=== PATIENT | male | born 1930 | race Caucasian/White ===

== ENCOUNTER 2017-10-08 16:32 | Inpatient (IN) | payer OTHER, MEDICARE ==
[~2017-10-08] VITALS: Ht 177.8 cm; Wt 72.5 kg
[2017-10-08 16:34] VITALS: BP 197/117; PULSE 113; RESP 16; TEMP 98; O2SAT 97
[2017-10-08] MEDS ORDERED: TETANUS/DIPHTHERIA TOXOID ADULT 0.5 ML VIAL IM ONE (17:15)
[2017-10-08] MEDS ORDERED: SODIUM CHLORIDE 0.9% FLUSH 10 ML FLUSH IV FLUSH PRN ×2 (17:15→19:00)
[2017-10-08] MEDS ORDERED: ceFAZolin 2 GM PREMIX 50 ML IV ONE (17:15)
--- NOTE | 2017-10-08 17:38 | PD ---
HPI Chief Complaint: Laceration/Skin Injury Time Seen by Provider: 17:04 Travel History International Travel<30 days: No Contact w/Intl Traveler<30days: No Traveled to known affect area: No History of Present Illness HPI 87-year-old male with history of hypertension, BPH, on Eliquis, he read private vehicle for evaluation of left second finger and left fourth finger lacerations. The patient was doing woodwork with a table saw when this injury occurred. Injury occurred just prior to arrival to the emergency department. Pain is mild. He denies any other injuries. He is right-hand dominant. PFSH Past Medical History Cardiovascular Problems: Yes Social History Tobacco Use: No Allergies-Medications (Allergen,Severity, Reaction): Uncoded Allergies: HTN MED (Adverse Reaction, Severe, Swelling, 10/08/17) LEGS Reported Meds & Prescriptions Reported Meds & Active Scripts Active Reported Eliquis (Apixaban) 5 Mg Tab 5 Mg PO BID Donepezil 10 Mg Tab 10 Mg PO HS Clonidine (Clonidine HCl) 0.1 Mg Tab 0.1 Mg PO HS Metoprolol Tartrate 100 Mg Tab 100 Mg PO HS Finasteride 5 Mg Tab 5 Mg PO DAILY Do not crush. Triamterene-Hydrochlorothiazide 37.5-25 Mg Cap 1 Cap PO DAILY Lisinopril 20 Mg Tab 20 Mg PO BID Review of Systems Except as stated in HPI: all other systems reviewed are Neg Physical Exam Narrative GENERAL: Well-developed, well-nourished, awake, alert, pleasant, no apparent distress. SKIN: Left fourth finger fingertip avulsion to approximately one third of the distal nail. Left second finger with partial amputation around the DIP joint. There is a moderate amount of venous bleeding. There is normal capillary refill in the distal tip of the left second finger. The patient is unable to extend the fingertip. He also has no sensation in the left second fingertip. HEAD: Atraumatic. Normocephalic. EYES: Pupils equal and round. No scleral icterus. No injection or drainage. ENT: No nasal bleeding or discharge. Mucous membranes pink and moist. NECK: Trachea midline. No JVD. CARDIOVASCULAR: Regular rate and rhythm. RESPIRATORY: No accessory muscle use. Clear to auscultation. Breath sounds equal bilaterally. MUSCULOSKELETAL: Skin exam as above. NEUROLOGICAL: Awake and alert. No obvious cranial nerve deficits. Motor grossly within normal limits. Normal speech. PSYCHIATRIC: Appropriate mood and affect; insight and judgment normal. Data Data Last Documented VS Vital Signs Date Time Temp Pulse Resp B/P (MAP) Pulse Ox O2 Delivery O2 Flow Rate FiO2 10/08/17 16:34 98.0 113 16 197/117 (143) 97 Orders Orders Complete Blood Count With Diff (10/08/17 17:11) Comprehensive Metabolic Panel (10/08/17 17:11) Prothrombin Time / Inr (Pt) (10/08/17 17:11) Act Partial Throm Time (Ptt) (10/08/17 17:11) Iv Access Insert/Monitor (10/08/17 17:11) Ecg Monitoring (10/08/17 17:11) Oximetry (10/08/17 17:11) Sodium Chloride 0.9% Flush (Ns Flush) (10/08/17 17:15) Hand, Complete ([id number]) (10/08/17 ) Chest, Single Ap (10/08/17 ) Cefazolin 2 Gm Premix (Ancef 2 Gm Premix (10/08/17 17:15) Tetanus/Diphtheria Tox Adult (Tetanus/Di (10/08/17 17:15) Electrocardiogram (10/08/17 ) Consult Hand Surgery (10/08/17 ) Diet Npo (10/08/17 Dinner) Consent (10/08/17 18:44) Comprehensive Metabolic Panel (10/09/17 06:00) Free Thyroxine (T4) (10/09/17 06:00) Hemoglobin (Hgb) A1c (10/09/17 06:00) Magnesium (Mg) (10/09/17 06:00) Phosphorus (Po4) (10/09/17 06:00) Thyroid Stimulating Hormone (10/09/17 06:00) Complete Blood Count With Diff (10/09/17 06:00) Admit Order (Ed Use Only) (10/08/17 18:48) Admit To Inpatient (10/08/17 ) Code Status (10/08/17 18:46) Vital Signs (Adult) Q4H (10/08/17 18:46) Activity Oob Ad Fallon (10/08/17 18:46) Oleo Hasher And Renderer / Telemetry .CONTINUOUS (10/08/17 18:46) Intake + Output LILLY.QSHIFT (10/08/17 18:46) Sodium Chlor 0.9% 1000 Ml Inj (Ns 1000 M (10/08/17 18:46) Sodium Chloride 0.9% Flush (Ns Flush) (10/08/17 19:00) Sodium Chloride 0.9% Flush (Ns Flush) (10/08/17 21:00) Acetaminophen (Tylenol) (10/08/17 19:00) Ondansetron Inj (Zofran Inj) (10/08/17 19:00) Resp Oxygen Quan C Titrat 1-4 L (10/08/17 ) Case Management Consult (10/08/17 18:46) Scd Bilateral/Knee High LILLY.BID (10/08/17 18:46) Jesus Bilateral/Knee High LILLY.QSHIFT (10/08/17 19:00) Acetaminophen (Tylenol) (10/08/17 19:00) Oxycodone-Acetamin 5-325 Mg (Percocet (10/08/17 19:00) Oxycodone-Acetamin 10-325 Mg (Percocet 1 (10/08/17 19:00) Morphine Inj (Morphine Inj) (10/08/17 19:00) Naloxone Inj (Narcan Inj) (10/08/17 19:00) Docusate Sodium-Senna (Dinah-Colace) (10/08/17 21:00) Magnesium Hydroxide Liq (Milk Of Magnesi (10/08/17 19:00) Sennosides (Senokot) (10/08/17 19:00) Bisacodyl Supp (Dulcolax Supp) (10/08/17 19:00) Lactulose Liq (Lactulose Liq) (10/08/17 19:00) Inpatient Certification (10/08/17 ) Morphine Inj (Morphine Inj) (10/08/17 19:00) Labs Laboratory Tests Test 10/08/17 17:45 White Blood Count 8.7 TH/MM3 Red Blood Count 4.63 MIL/MM3 Hemoglobin 15.0 GM/DL Hematocrit 43.9 % Mean Corpuscular Volume 94.9 FL Mean Corpuscular Hemoglobin 32.4 PG Mean Corpuscular Hemoglobin Concent 34.2 % Red Cell Distribution Width 13.3 % Platelet Count 145 TH/MM3 Mean Platelet Volume 9.5 FL Neutrophils (%) (Auto) 72.8 % Lymphocytes (%) (Auto) 17.8 % Monocytes (%) (Auto) 7.8 % Eosinophils (%) (Auto) 1.3 % Basophils (%) (Auto) 0.3 % Neutrophils # (Auto) 6.3 TH/MM3 Lymphocytes # (Auto) 1.5 TH/MM3 Monocytes # (Auto) 0.7 TH/MM3 Eosinophils # (Auto) 0.1 TH/MM3 Basophils # (Auto) 0.0 TH/MM3 CBC Comment DIFF FINAL Differential Comment Prothrombin Time 11.4 SEC Prothromb Time International Ratio 1.1 RATIO Activated Partial Thromboplast Time 31.5 SEC Blood Urea Nitrogen 15 MG/DL Creatinine 1.23 MG/DL Random Glucose 100 MG/DL Total Protein 7.0 GM/DL Albumin 3.8 GM/DL Calcium Level 8.6 MG/DL Alkaline Phosphatase 72 U/L Aspartate Amino Transf (AST/SGOT) 32 U/L Alanine Aminotransferase (ALT/SGPT) 25 U/L Total Bilirubin 0.8 MG/DL Sodium Level 139 MEQ/L Potassium Level 3.4 MEQ/L Chloride Level 104 MEQ/L Carbon Dioxide Level 28.5 MEQ/L Anion Gap 7 MEQ/L Estimat Glomerular Filtration Rate 56 ML/MIN [facility] Medical Decision Making Medical Screen Exam Complete: Yes Emergency Medical Condition: Yes Differential Diagnosis Left finger lacerations, partial amputation of the distal left second finger, extensor tendon lacerations, open fracture Narrative Course 5:30 PM: Case discussed with on-call hand surgeon Dr. Torres who would like the patient to remain NPO, and plans to take the patient to the operating room for exploration and repair of hand lacerations. Patient was provided Ancef and tetanus. Preop EKG was performed and shows atrial flutter with a rate of 108. The machine reading shows acute VT stating that there are ST elevations in the anterior leads. Patient has a slight intraventricular conduction delay with a left bundle branch block pattern. He is denying any chest pain. There are no reciprocal changes. This is not a STEMI. CBC is unremarkable. CMP is unremarkable. PT, INR, and APTT are within normal range. Case discussed with hospitalist Dr. Keyes who will admit the patient to his service. Patient's heart rate remains around 110, atrial flutter. He will be given 10 mg of IV Cardizem. Diagnosis Primary Impression: Laceration of finger of left hand with complication Qualified Codes: S61.412A - Laceration without foreign body of left hand, initial encounter Additional Impression: Atrial flutter Qualified Codes: I48.92 - Unspecified atrial flutter Admitting Information Admitting Physician Requests: Admit Nelson Bonner MD Oct 08, 2017 17:38
[2017-10-08 18:12] LABS: AUTOMATED NEUTROPHIL # 6.3 TH/MM3 (1.8-7.7); BASOPHIL % 0.3 % (0.0-2.0); EOSINOPHIL # 0.1 TH/MM3 (0-0.4); EOSINOPHIL % 1.3 % (0.0-4.0); HEMATOCRIT 43.9 % (39.0-51.0); HEMO FLAGS DIFF FINAL; LYMPH % 17.8 % (9.0-44.0); LYMPHOCYTE # 1.5 TH/MM3 (1.0-4.8); MEAN CELL VOLUME 94.9 FL (80.0-100.0); MEAN CORPUSCULAR HEMOGLOBIN 32.4 PG (27.0-34.0); MEAN CORPUSCULAR HGB CONC 34.2 % (32.0-36.0); MONO % 7.8 % (0.0-8.0); NEUT % 72.8 % (16.0-70.0); PLATELET COUNT 145 TH/MM3 (150-450); RED BLOOD COUNT 4.63 MIL/MM3 (4.50-5.90); RED CELL DISTRIBUTION WIDTH 13.3 % (11.6-17.2); WHITE BLOOD COUNT 8.7 TH/MM3 (4.0-11.0)
[2017-10-08 18:22] LABS: ANION GAP 7 MEQ/L (5-15); AST (GOT) 32 U/L (15-37); BICARBONATE 28.5 MEQ/L (21.0-32.0); BLOOD UREA NITROGEN 15 MG/DL (7-18); CHLORIDE 104 MEQ/L (98-107); GLOMERULAR FILTRATION RATE 56 ML/MIN (>89); POTASSIUM 3.4 MEQ/L (3.5-5.1); SODIUM (NA) 139 MEQ/L (136-145)
[2017-10-08] MEDS ORDERED: METO100T PO (18:22)
[2017-10-08] MEDS ORDERED: APIX5TAB PO (18:22)
[2017-10-08] MEDS ORDERED: FINA5TAB2 PO (18:22)
[2017-10-08] MEDS ORDERED: LISI-515 PO (18:22)
[2017-10-08] MEDS ORDERED: DONE10TA7 PO (18:22)
[2017-10-08] MEDS ORDERED: CLON0.1T PO (18:22)
[2017-10-08] MEDS ORDERED: TRIA37.53 PO (18:22)
[2017-10-08 18:25] LABS: APTT (PATIENT) 31.5 SEC (24.3-30.1); INTERNATIONAL NORMALIZED RATIO 1.1 RATIO; PROTHROMBIN TIME - PATIENT 11.4 SEC (9.8-11.6)
[2017-10-08 18:26] LABS: ALKALINE PHOSPHATASE 72 U/L (45-117); ALT (GPT) 25 U/L (12-78); TOTAL BILIRUBIN ADULT 0.8 MG/DL (0.2-1.0)
[2017-10-08] MEDS ORDERED: BISACODYL 10 MG SUPP RECTAL PRN (19:00)
[2017-10-08] MEDS ORDERED: oxyCODONE/ACETAMINOPHEN 10 MG/325 MG TAB PO PRN (19:00)
[2017-10-08] MEDS ORDERED: MORPHINE SULFATE 4 MG/ML INJ IV PUSH PRN (19:00)
[2017-10-08] MEDS ORDERED: LACTULOSE SYRUP 20 GM/30 ML CUP PO PRN (19:00)
[2017-10-08] MEDS ORDERED: oxyCODONE/ACETAMINOPHEN 5 MG/325 MG TAB PO PRN (19:00)
[2017-10-08] MEDS ORDERED: DILTIAZEM HCL 25 MG/5 ML VIAL IV ONE (19:00)
[2017-10-08] MEDS ORDERED: NALOXONE HCL 0.4 MG/ML AMP IV PUSH PRN (19:00)
[2017-10-08] MEDS ORDERED: ONDANSETRON HCL 4 MG/2 ML VIAL IVP PRN (19:00)
[2017-10-08] MEDS ORDERED: MORPHINE SULFATE 2 MG/ML INJ IV PUSH PRN (19:00)
[2017-10-08] MEDS ORDERED: MAGNESIUM HYDROXIDE SUSP 30 ML CUP PO PRN (19:00)
[2017-10-08] MEDS ORDERED: SENNOSIDES 8.6 MG TAB PO PRN (19:00)
[2017-10-08] MEDS ORDERED: ACETAMINOPHEN 325 MG TAB PO PRN ×2 (19:00)
--- NOTE | 2017-10-08 19:11 | RADRPT ---
EXAM DATE/TIME: 10/08/2017 18:09 [facility] COMPARISON: No previous studies available for comparison. INDICATIONS : Patient states he cut his fingers with a tablesaw tonight. MEDICAL HISTORY : None. SURGICAL HISTORY : None. ENCOUNTER: Initial ACUITY: 1 day PAIN SCORE: 10/10 LOCATION: Left Hand FINDINGS: 3 views left hand. There is a prominent bone defect at the base of the index finger distal phalanx. T he tuft of the distal phalanx remains in place. Bone defect measures 9 mm and proximal to distal dime nsion. CONCLUSION: Bone defect at the base of the index finger distal phalanx. Mark Bradford MD on October 08, 2017 at 19:07 Board Certified Radiologist. This report was verified electronically.
--- NOTE | 2017-10-08 19:12 | RADRPT ---
EXAM DATE/TIME: 10/08/2017 18:13 [facility] COMPARISON: No previous studies available for comparison. INDICATIONS : Shortness of breath. MEDICAL HISTORY : None. SURGICAL HISTORY : None. ENCOUNTER: Initial ACUITY: 1 day PAIN SCORE: 0/10 LOCATION: Bilateral chest FINDINGS: Single AP view of the chest. The lungs are clear. Cardiomediastinal silhouette within normal limits. No evidence of pleural effusion or pneumothorax. CONCLUSION: No acute cardiopulmonary disease identified. Mark Bradford MD on October 08, 2017 at 19:10 Board Certified Radiologist. This report was verified electronically.
[2017-10-08] MEDS ORDERED: NEOMYCIN/POLYMYXIN 1 ML G.U. IRRIGANT ONE (19:14)
[2017-10-08 19:19] VITALS: BP 184/107; PULSE 84; RESP 20; O2SAT 94
--- NOTE | 2017-10-08 20:07 | HHI.HP ---
[facility] Kush Ball MD Admission Diagnosis Left finger lacerations/ partial left 2nd finger amputation Diagnoses: Travel History International Travel<30 Days: No Contact w/Intl Traveler <30 Da: No Traveled to Known Affected Are: No History of Present Illness 87-year-old male with a past medical history significant for dementia and hypertension presents after a table saw accident. The patient reports he was cutting wood with a table saw when he caught his left second and fourth fingers on the saw. He has a left fourth fingertip avulsion approximately one third of the distal nail. He also has a left second finger with partial amputation around the DIP joint. The patient was found to be in atrial flutter at the time of his arrival in the emergency department with a heart rate of 108. He was given 10 mg of IV diltiazem with subsequent rate control. The patient does not know if he has a history of atrial fibrillation but is on metoprolol and Eliquis as home medications. Review of Systems Denies fever or chills Denies blurry vision, otorrhea, rhinorrhea Denies sore throat and cough No chest pain, palpitations, shortness of breath No abdominal pain Denies constipation/diarrhea/nausea/vomiting Denies muscle pain/weakness No rashes Past Family Social History Past Medical History Hypertension Dementia Patient does not know the remainder of his medical history however he is on metoprolol and Eliquis presumably for atrial fibrillation Past Surgical History Tonsillectomy Reported Medications Reported Meds & Active Scripts Active Reported Eliquis (Apixaban) 5 Mg Tab 5 Mg PO BID Donepezil 10 Mg Tab 10 Mg PO HS Clonidine (Clonidine HCl) 0.1 Mg Tab 0.1 Mg PO HS Metoprolol Tartrate 100 Mg Tab 100 Mg PO HS Finasteride 5 Mg Tab 5 Mg PO DAILY Do not crush. Triamterene-Hydrochlorothiazide 37.5-25 Mg Cap 1 Cap PO DAILY Lisinopril 20 Mg Tab 20 Mg PO BID Allergies: Uncoded Allergies: HTN MED (Adverse Reaction, Severe, Swelling, 10/08/17) LEGS Family History Denies family history of DM/CAD Social History Denies tobacco. Occasional alcohol. Denies illicit drugs. Physical Exam Vital Signs Vital Signs Date Time Temp Pulse Resp B/P (MAP) Pulse Ox O2 Delivery O2 Flow Rate FiO2 10/08/17 19:30 10/08/17 19:19 84 20 184/107 (132) 94 10/08/17 16:34 98.0 113 16 197/117 (143) 97 Physical Exam GENERAL: male sitting up in bed SKIN: No rashes, ecchymoses or lesions. Cool and dry. HEAD: Atraumatic. Normocephalic. No temporal or scalp tenderness. EYES: Pupils equal round and reactive. Extraocular motions intact. No scleral icterus. No injection or drainage. ENT: Nose without bleeding, purulent drainage or septal hematoma. Throat without erythema, tonsillar hypertrophy or exudate. Uvula midline. Airway patent. NECK: Trachea midline. No JVD or lymphadenopathy. Supple, nontender, no meningeal signs. CARDIOVASCULAR: Regular rate and rhythm without murmurs, gallops, or rubs. RESPIRATORY: Clear to auscultation. Breath sounds equal bilaterally. No wheezes , rales, or rhonchi. GASTROINTESTINAL: Abdomen soft, non-tender, nondistended. No hepato-splenomegaly , or palpable masses. No guarding. MUSCULOSKELETAL: Extremities without clubbing, cyanosis, or edema. No joint tenderness, effusion, or edema noted. No calf tenderness. Left hand wrapped, dressing saturated with blood. Currently hemostatic. Patient with left fourth finger tip avulsion and left second finger partial amputation around the DIP joint. NEUROLOGICAL: Awake and alert. Cranial nerves II through XII intact. Motor and sensory grossly within normal limits. Normal speech. Laboratory Laboratory Tests Test 10/08/17 17:45 White Blood Count 8.7 Red Blood Count 4.63 Hemoglobin 15.0 Hematocrit 43.9 Mean Corpuscular Volume 94.9 Mean Corpuscular Hemoglobin 32.4 Mean Corpuscular Hemoglobin Concent 34.2 Red Cell Distribution Width 13.3 Platelet Count 145 Mean Platelet Volume 9.5 Neutrophils (%) (Auto) 72.8 Lymphocytes (%) (Auto) 17.8 Monocytes (%) (Auto) 7.8 Eosinophils (%) (Auto) 1.3 Basophils (%) (Auto) 0.3 Neutrophils # (Auto) 6.3 Lymphocytes # (Auto) 1.5 Monocytes # (Auto) 0.7 Eosinophils # (Auto) 0.1 Basophils # (Auto) 0.0 CBC Comment DIFF FINAL Differential Comment Prothrombin Time 11.4 Prothromb Time International Ratio 1.1 Activated Partial Thromboplast Time 31.5 Blood Urea Nitrogen 15 Creatinine 1.23 Random Glucose 100 Total Protein 7.0 Albumin 3.8 Calcium Level 8.6 Alkaline Phosphatase 72 Aspartate Amino Transf (AST/SGOT) 32 Alanine Aminotransferase (ALT/SGPT) 25 Total Bilirubin 0.8 Sodium Level 139 Potassium Level 3.4 Chloride Level 104 Carbon Dioxide Level 28.5 Anion Gap 7 Estimat Glomerular Filtration Rate 56 Result Diagram: 10/08/17174410/08/171744 Caprini VTE Risk Assessment Caprini VTE Risk Assessment: Mod/High Risk (score >= 2) Caprini Risk Assessment Model Point Value = 1 Point Value = 2 Point Value = 3 Point Value = 5 Age 41-60 Minor surgery BMI > 25 kg/m2 Swollen legs Varicose veins or History of unexplained or recurrent spontaneous Oral contraceptives or hormone replacement Sepsis (< 1 month) Serious lung disease, including pneumonia (< 1 month) Abnormal pulmonary function Acute myocardial infarction Congestive heart failure (< 1 month) History of inflammatory bowel disease Medical patient at bed rest Age 61-74 Arthroscopic surgery Major open surgery (> 45 min) Laparoscopic surgery (> 45 min) Malignancy Confined to bed (> 72 hours) Immobilizing plaster cast Central venous access Age >= 75 History of VTE Family history of VTE Factor V Leiden Prothrombin [id number] Lupus anticoagulant Anticardiolipin antibodies Elevated serum homocysteine Heparin-induced thrombocytopenia Other congenital or acquired thrombophilia Stroke (< 1 month) Elective arthroplasty Hip, pelvis, or leg fracture Acute spinal cord injury (< 1 month) Prophylaxis Regimen Total Risk Factor Score Risk Level Prophylaxis Regimen 0-1 Low Early ambulation 2 Moderate Order ONE of the following: *Sequential Compression Device (SCD) *Heparin 5000 units SQ BID 3-4 Higher Order ONE of the following medications: *Heparin 5000 units SQ TID *Enoxaparin/Lovenox 40 mg SQ daily (WT < 150 kg, CrCl > 30 mL/min) *Enoxaparin/Lovenox 30 mg SQ daily (WT < 150 kg, CrCl > 10-29 mL/min) *Enoxaparin/Lovenox 30 mg SQ BID (WT < 150 kg, CrCl > 30 mL/min) AND/OR *Sequential Compression Device (SCD) 5 or more Highest Order ONE of the following medications: *Heparin 5000 units SQ TID (Preferred with Epidurals) *Enoxaparin/Lovenox 40 mg SQ daily (WT < 150 kg, CrCl > 30 mL/min) *Enoxaparin/Lovenox 30 mg SQ daily (WT < 150 kg, CrCl > 10-29 mL/min) *Enoxaparin/Lovenox 30 mg SQ BID (WT < 150 kg, CrCl > 30 mL/min) AND *Sequential Compression Device (SCD) Assessment and Plan Assessment and Plan Assessment/plan: 1. Left finger laceration/partial amputation of the distal left second finger/ extensor tendon laceration/open fracture Hand surgery consulted, appreciate assistance Patient scheduled for operative intervention this evening 2. Atrial flutter on EKG Patient does not know his history however is on metoprolol and Eliquis EKG in the ED showed atrial flutter with a rate of 108, reviewed by me Status post IV diltiazem 1 with rate control Continue home metoprolol Telemetry 3. Hypertension Continue home clonidine, metoprolol, lisinopril Monitor blood pressure 4. Dementia Continue home Donepezil 5. BPH Continue home finasteride FEN NPO until after surgery Electrolytes: s/p PO potassium supplementation, follow BMP Anticoagulation per hand surgery Physician Certification 2 Midnight Certification Type: Admission for Inpatient Services Order for Inpatient Services The services are ordered in accordance with Medicare regulations or non- Medicare payer requirements, as applicable. In the case of services not specified as inpatient-only, they are appropriately provided as inpatient services in accordance with the 2-midnight benchmark. Estimated LOS (days): 2 2 days is the estimated time the patient will need to remain in the hospital, assuming treatment plan goals are met and no additional complications. Post-Hospital Plan: Not yet determined Modesta Gaspar MD Oct 08, 2017 20:07
[2017-10-08] MEDS: SODIUM CHLORIDE 0.9% FLUSH 10 ML FLUSH IV FLUSH SCH (21:00)
[2017-10-08] MEDS ORDERED: POTASSIUM CHLORIDE 20 MEQ CONTROLLED RELEASE TAB PO ONE (21:00)
[2017-10-08] MEDS ORDERED: ceFAZolin INJ 1,000 MG VIAL ONE (21:04)
[2017-10-08] MEDS ORDERED: BACITRACIN TOP OINT 15 GM TUBE ONE (21:24)
[2017-10-08] MEDS ORDERED: LIDOCAINE HCL 2% 50 ML VIAL ONE (21:51)
[2017-10-08] MEDS ORDERED: DO NOT ADM ANY ANTICOAGULANT DRUGS PRN (22:15)
[2017-10-08] MEDS: SODIUM CHLOR 0.9% 1000 ML INJ 1,000 ML IV SCH (22:30)
[2017-10-08] MEDS ORDERED: *morphine SULFATE 4 MG/ML PERIprocedure ONLY ONE (22:56)
--- NOTE | 2017-10-08 23:07 | PD.ORT.PN ---
Subjective Subjective Remarks Patient reports pain controlled in PACU Objective Vitals Vital Signs Date Time Temp Pulse Resp B/P (MAP) Pulse Ox O2 Delivery O2 Flow Rate FiO2 10/08/17 23:00 103 20 150/89 (109) 97 Room Air 10/08/17 22:45 102 21 148/87 (107) 97 Room Air 10/08/17 22:30 103 24 147/87 (107) 98 Nasal Cannula 2 10/08/17 22:16 98.0 103 20 130/86 (101) 99 Nasal Cannula 2 10/08/17 19:30 10/08/17 19:19 84 20 184/107 (132) 94 10/08/17 16:34 98.0 113 16 197/117 (143) 97 I/O 10/08/17 10/08/17 10/08/17 10/09/17 10/09/17 10/09/17 07:00 15:00 23:00 07:00 15:00 23:00 Intake Total 1150 ml Output Total 250 ml Balance 900 ml Intake IV Total 1150 ml Output Estimated Blood Loss 250 ml Result Diagram: 10/08/17 1745 10/08/17 1745 Other Results Laboratory Tests Test 10/08/17 17:45 Prothromb Time International Ratio 1.1 RATIO Prothrombin Time 11.4 SEC (9.8-11.6) Imaging Last 24 hours Impressions Hand X-Ray 10/08/17 0000 Signed Impressions: Service Date/Time: Sunday, October 08, 2017 18:09 - CONCLUSION: Bone defect at the base of the index finger distal phalanx. Mark Bradford MD Chest X-Ray 10/08/17 0000 Signed Impressions: Service Date/Time: Sunday, October 08, 2017 18:13 - CONCLUSION: No acute cardiopulmonary disease identified. Mark Bradford MD Objective Remarks Dressing in place Assessment & Plan Assessment and Plan 87yM tablesaw injury left index and ring fingers now POD0 s/p revision amputation left index finger and I&D and repair laceration left ring finger -Elevate left hand -Cardiac monitoring per primary team -Okay to discharge per hand surgery tomorrow and followup in office this week Rakel Torres MD Oct 08, 2017 23:07
--- NOTE | 2017-10-08 23:22 | MB ---
cc: PRICILA RAHMAN DATE OF CONSULTATION 10/08/17 REASON FOR CONSULTATION Table saw injury left hand. HISTORY OF PRESENT ILLNESS Brian Mane is a very pleasant 87-year-old right-hand dominant male who was using a table saw earlier today and sustained an injury to his left index and ring fingers. He presents for evaluation. He reports a remote injury to the left hand but nothing significant. He does take Eliquis and has a past medical history of atrial fibrillation. He reports pain over the left index and ring finger. Reports paresthesias in the left index finger. PAST MEDICAL HISTORY Hypertension. PAST SURGICAL HISTORY Tonsillectomy. MEDICATIONS 1. Eliquis 2. Donezapril 3. Clonidine 4. Metoprolol. 5. Finasteride. 6. Triamterene Hydrochlorothiazide. 7. Lisinopril. ALLERGIES Unknown. SOCIAL HISTORY Denies tobacco, alcohol or drug use. VITAL SIGNS: Blood pressure 184/107, pulse 108. PHYSICAL EXAMINATION The patient is alert and oriented. The patient had significant bleeding on the wrap over the left hand. This was removed. There was dusky color of the left index finger with near circumferential amputation of the left index finger just proximal to the distal interphalangeal joint. There was a small skin flap intact. There was significant arterial bleeding from the left index finger. Function is intact of FDS, no function of FDP and decreased sensation distal to the level of the amputation. Intact proximally. Exam of the left ring finger shows exposed bone over the distal phalanx with a slight nail bed injury. Function intact of FDS and FDP. Sensation present as well as good capillary refill. IMAGING STUDIES X-ray shows significant bone loss and fracture of the left index finger including a significant portion of the middle and distal phalanx. ASSESSMENT/PLAN An 87-year-old right-hand dominant male with a significant table saw injury to the left index and ring finger. Treatment options were discussed with the patient. I recommend surgical intervention at the earliest available time. He will be admitted to the medical team and they will manage his heart rate and blood pressure. He understands I will likely have to perform revision amputation of the index finger, possible pinning, possible repair as well as possible repair of the left ring finger. He elected to proceed. MD MARTITA Rivera /10:46 PM /10:55 PM MTDMillie
[2017-10-09] VITALS (8 sets, daily range): BP systolic 106–165; BP diastolic 59–89; PULSE 106–114; RESP 16–18; TEMP 97.8–99.7; O2SAT 94–96
[2017-10-09] MEDS: DOCUSATE SODIUM 50 MG/SENNA 8.6 MG TAB PO SCH ×3 (01:12→20:55)
[2017-10-09] MEDS: cloNIDine HCL 0.1 MG TAB PO SCH ×2 (01:13→20:55)
[2017-10-09] MEDS: DONEPEZIL HCL 5 MG TAB PO SCH ×2 (01:13→20:55)
[2017-10-09] MEDS: LISINOPRIL 20 MG TAB PO SCH ×3 (01:14→20:55)
[2017-10-09] MEDS: METOPROLOL TARTRATE 100 MG TAB PO SCH ×2 (01:14→20:55)
[2017-10-09] MEDS: SODIUM CHLOR 0.9% 1000 ML INJ 1,000 ML IV SCH (04:46)
[2017-10-09 06:14] LABS: AUTOMATED NEUTROPHIL # 5.8 TH/MM3 (1.8-7.7); BASOPHIL % 0.2 % (0.0-2.0); HEMO FLAGS DIFF FINAL; LYMPH % 12.5 % (9.0-44.0); LYMPHOCYTE # 0.9 TH/MM3 (1.0-4.8); MEAN CELL VOLUME 94.5 FL (80.0-100.0); MEAN CORPUSCULAR HEMOGLOBIN 32.5 PG (27.0-34.0); MEAN CORPUSCULAR HGB CONC 34.4 % (32.0-36.0); MONO % 4.8 % (0.0-8.0); NEUT % 82.5 % (16.0-70.0); PLATELET COUNT 112 TH/MM3 (150-450); RED BLOOD COUNT 2.97 MIL/MM3 (4.50-5.90); RED CELL DISTRIBUTION WIDTH 13.3 % (11.6-17.2)
[2017-10-09] MEDS: SODIUM CHLORIDE 0.9% FLUSH 10 ML FLUSH IV FLUSH SCH ×2 (09:00→20:55)
[2017-10-09] MEDS: TRIAMTERENE/HCTZ 37.5 MG/25 MG CAP PO SCH (09:00)
[2017-10-09] MEDS: FINASTERIDE 5 MG TAB PO SCH (09:00)
[2017-10-09 09:25] LABS: ALKALINE PHOSPHATASE 47 U/L (45-117); ALT (GPT) 15 U/L (12-78); ANION GAP 9 MEQ/L (5-15); AST (GOT) 16 U/L (15-37); BICARBONATE 26.4 MEQ/L (21.0-32.0); BLOOD UREA NITROGEN 15 MG/DL (7-18); CHLORIDE 105 MEQ/L (98-107); FREE T4 0.93 NG/DL (0.76-1.46); GLOMERULAR FILTRATION RATE 51 ML/MIN (>89); MAGNESIUM 1.8 MG/DL (1.5-2.5); POTASSIUM 4.1 MEQ/L (3.5-5.1); SODIUM (NA) 140 MEQ/L (136-145); TOTAL BILIRUBIN ADULT 0.6 MG/DL (0.2-1.0)
[2017-10-09] MEDS: DIGOXIN 0.125 MG TAB PO SCH (10:55)
[2017-10-09 11:31] LABS: HEMOGLOBIN A1b 1.7 %; HEMOGLOBIN Ao 83.9 %; HEMOGLOBIN LA1C 3.4 %; HEMOGLOBIN P3 3.9 %
[2017-10-09 13:04] LABS: HEMATOCRIT 29.3 % (39.0-51.0); REVIEW FLAG FINAL
--- NOTE | 2017-10-09 14:23 | HHI.PR ---
Subjective Remarks Follow up anemia, a-fib with RVR. Patient states that he occasionally has sharp pains in his left hand. Otherwise, no complaints at this time. Denies chest pain , dyspnea, palpitations. He is adamant that he wants to go home this afternoon. He states that he has a lot of family coming over tonight to celebrate Kristi. His is at bedside and states that she is comfortable with him going home. Objective Vitals Vital Signs Date Time Temp Pulse Resp B/P (MAP) Pulse Ox O2 Delivery O2 Flow Rate FiO2 10/09/17 12:00 98.8 110 18 112/63 (79) 95 10/09/17 08:00 98.7 109 18 106/59 (75) 95 10/09/17 04:00 98.0 109 18 108/64 (79) 96 10/09/17 01:37 18 10/09/17 00:40 108 10/09/17 00:20 97.8 106 16 153/89 (110) 95 10/08/17 23:45 104 16 142/74 (96) 93 Room Air 10/08/17 23:30 97.4 102 17 122/68 (86) 94 Room Air 10/08/17 23:15 101 13 139/65 (89) 95 Room Air 10/08/17 23:00 103 20 150/89 (109) 97 Room Air 10/08/17 22:45 102 21 148/87 (107) 97 Room Air 10/08/17 22:30 103 24 147/87 (107) 98 Nasal Cannula 2 10/08/17 22:16 98.0 103 20 130/86 (101) 99 Nasal Cannula 2 10/08/17 19:30 10/08/17 19:19 84 20 184/107 (132) 94 10/08/17 16:34 98.0 113 16 197/117 (143) 97 I/O 10/08/17 10/08/17 10/08/17 10/09/17 10/09/17 10/09/17 07:00 15:00 23:00 07:00 15:00 23:00 Intake Total 1150 ml 1231 ml Output Total 250 ml 600 ml Balance 900 ml 631 ml Intake Oral 610 ml IV Total 1150 ml 621 ml Output Urine Total 600 ml Estimated Blood Loss 250 ml Result Diagram: 10/09/17 1250 10/09/17 0545 Imaging Last Impressions Hand X-Ray 10/08/17 0000 Signed Impressions: Service Date/Time: Sunday, October 08, 2017 18:09 - CONCLUSION: Bone defect at the base of the index finger distal phalanx. Mark Bradford MD Chest X-Ray 10/08/17 0000 Signed Impressions: Service Date/Time: Sunday, October 08, 2017 18:13 - CONCLUSION: No acute cardiopulmonary disease identified. Mark Bradford MD Objective Remarks General: Elderly male in no acute distress. Heart: Tachycardic. Lungs: Clear to auscultation bilaterally. No wheezes, rales, or rhonchi. Breathing is nonlabored. Abdomen: Soft, nontender, nondistended. Extremities: No lower extremity edema. Left hand heavily bandaged. Psych: Alert and oriented. Procedures 10/08/17 revision amputation left index finger, incision and drainage with repair of laceration left ring finger Urinary Catheter: No Vascular Central Line Catheter: No A/P Assessment and Plan 1. Left index and fourth finger laceration, partial amputation: Status post surgical intervention. Appreciate hand surgery recommendations. Cleared for discharge home by hand surgery. 2. Atrial fibrillation with RVR: Patient does have a history of atrial fibrillation and follows with cardiology, Dr. Granados. He takes metoprolol and digoxin. He is on Eliquis for anticoagulation. He was given IV diltiazem 1 in the ER with improvement of his rate. Despite metoprolol and digoxin, the patient 's heart rate has remained in the 105-110 range. He is asymptomatic. He is requesting discharge home. 3. Hypertension: Blood pressure has been borderline low. Continue clonidine, metoprolol. Dyazide, lisinopril, finasteride held. 4. Dementia: Continue donepezil. 5. Anemia secondary to acute blood loss: Hemoglobin has stabilized. No active bleeding. Eliquis on hold. Discharge Planning The patient is requesting discharge home. He is adamant that he needs to be at home this evening for his family's Kristi gathering. Will monitor on telemetry this afternoon and consider discharge home. He has been cleared for discharge by hand surgery. Hemoglobin is low, but stabilized. There is no active bleeding. Atrial fibrillation is a chronic problem and he follows with cardiology for this. He states that he is asymptomatic. His states that she is comfortable taking him home at this time. Sherwin Oneill MD Oct 09, 2017 14:23
[2017-10-09] MEDS ORDERED: NORC5TAB PO (15:30)
--- NOTE | 2017-10-09 15:32 | HHI.DCPOC ---
Discharge Care Plan Diagnosis: (1) Atrial fibrillation with RVR (2) Laceration of finger of left hand with complication Goals to Promote Your Health * To prevent worsening of your condition and complications * To maintain your health at the optimal level Directions to Meet Your Goals Take your medications as prescribed Follow your dietary instruction Follow activity as directed Keep your appointments as scheduled Take your immunizations and boosters as scheduled If your symptoms worsen call your PCP, if no PCP go to Urgent Care Center or Emergency Room Smoking is Dangerous to Your Health. Avoid second hand smoke Call the 24-hour hour crisis hotline for domestic abuse at Sherwin Oneill MD Oct 09, 2017 15:32
[2017-10-09] MEDS: ACETAMINOPHEN/HYDROcodone 325 MG/5 MG TAB PO PRN ×2 (15:45→22:23)
[2017-10-09] MEDS ORDERED: PILL SPLITTER OTHER PRN (15:45)
[2017-10-09] MEDS ORDERED: METOPROLOL TARTRATE 25 MG TAB PO ONE (15:45)
[2017-10-09] MEDS ORDERED: ACETAMINOPHEN/HYDROcodone 325 MG/5 MG TAB PO ONE (17:15)
--- NOTE | 2017-10-09 21:32 | MP ---
cc: RAKEL TORRES DATE OF SURGERY: 10/08/2017. PREOPERATIVE DIAGNOSIS: 1. Table saw injury, left index and ring finger. 2. Open area of bone loss over the left index finger, middle and distal phalanx with laceration of the flexor digitorum profundus, digital nerves and digital arteries. 3. Laceration left ring finger. POSTOPERATIVE DIAGNOSIS: 1. Table saw injury, left index and ring finger. 2. 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 Laceration left ring finger. OPERATIVE PROCEDURE PERFORMED: 1. Revision amputation of left index finger through the middle phalanx with direct closure. 2. Repair laceration left ring finger as well as irrigation and debridement open fracture distal phalanx. 3. Interpretation of fluroscopy left hand by the surgeon SURGEON: Dr. Rakel Torres ANESTHESIA General and local. TOURNIQUET TIME: None. SPECIMEN: Left index finger for pathology. INDICATIONS FOR THE PROCEDURE: Brian Mane is an 87-year-old male who sustained a table saw injury to the left index and ring fingers. He elected to proceed with surgical intervention. Risks were explained but not limited to wound complications, infection, need for amputation of the finger, persistent pain, paresthesias, stiffness, nail deformity, and he elected to proceed. DESCRIPTION OF THE PROCEDURE IN DETAIL: The patient was identified in the preoperative holding area and the correct extremity was marked. The patient was taken to the operating room where anesthesia was induced. The left upper extremity was prepped and draped in the usual sterile fashion. No tourniquet was used. There was significant bleeding over the finger. Both arteries of the left index finger were lacerated with significant pulsatile bleeding. There was a dusky color to the remaining flap over the finger. There was no Dopplerable signal. The decision was made to perform revision amputation of the left index finger. The tip was nonviable and this was removed. Neurectomies were performed. The middle phalanx was shortened slightly to maintain bone coverage but care was taken to protect the flexor digitorum superficialis. The skin was flapped and closed using chromic. This provided good appearance to the finger with good capillary refill to the flap. X-rays confirmed amputation of the left index finger. The open fracture of the left ring finger distal phalanx was then irrigated and debrided including skin, subcutaneous tissue, muscle and bone using curettes and rongeurs. Then the skin was closed again using 4-0 chromic. The patient was placed in a soft dressing. Approximately 10 mL of 2% lidocaine with no epinephrine was used for local anesthesia. The patient will be admitted overnight again for cardiac monitoring. I will see him in the office this week. MD HOLDEN Rivera/AISHWARYA /10:49 PM /9:11 PM MTDD
--- NOTE | 2017-10-09 22:03 | EKG ---
Date Performed: 10/08/2017 Time Performed: 17:38:19 PTAGE: 87 years EKG: ATRIAL FLUTTER/TACHYCARDIA WITH RAPID VENTRICULAR RESPONSE INTRAVENTRICULAR CONDUCTION PRISCILLA Y LEFT VENTRICULAR HYPERTROPHY AND ST-T CHANGE ANTERIOR MYOCARDIAL INFARCTION NO PREVIOUS TRACING DOCTOR: Cecilia Fish Interpretating Date/Time 10/09/2017 22:02:14
[2017-10-10 00:20] VITALS: BP 134/79; PULSE 102; RESP 17; TEMP 98.8; O2SAT 96
[2017-10-10 04:25] VITALS: BP 167/96; PULSE 111; RESP 18; TEMP 96.9; O2SAT 98
[2017-10-10] MEDS: ACETAMINOPHEN/HYDROcodone 325 MG/5 MG TAB PO PRN ×2 (05:21→11:43)
[2017-10-10 06:11] LABS: AUTOMATED NEUTROPHIL # 7.2 TH/MM3 (1.8-7.7); BASOPHIL % 0.4 % (0.0-2.0); EOSINOPHIL # 0.1 TH/MM3 (0-0.4); EOSINOPHIL % 1.1 % (0.0-4.0); HEMATOCRIT 28.8 % (39.0-51.0); HEMO FLAGS DIFF FINAL; LYMPH % 23.3 % (9.0-44.0); LYMPHOCYTE # 2.5 TH/MM3 (1.0-4.8); MEAN CELL VOLUME 94.9 FL (80.0-100.0); MEAN CORPUSCULAR HEMOGLOBIN 32.4 PG (27.0-34.0); MEAN CORPUSCULAR HGB CONC 34.1 % (32.0-36.0); NEUT % 66.2 % (16.0-70.0); PLATELET COUNT 114 TH/MM3 (150-450); RED BLOOD COUNT 3.03 MIL/MM3 (4.50-5.90); RED CELL DISTRIBUTION WIDTH 12.9 % (11.6-17.2); WHITE BLOOD COUNT 10.9 TH/MM3 (4.0-11.0)
[2017-10-10 08:00] VITALS: BP 176/95; PULSE 110; RESP 19; TEMP 98.3; O2SAT 94
--- NOTE | 2017-10-10 08:18 | HHI.PR ---
Subjective Remarks Follow up a-fib, left hand injury. Patient reportedly had pain overnight. His is concerned about not being able to fill prescription for pain medication if patient is discharged home today. He denies chest pain, dyspnea, palpitations , lightheadedness, dizziness. Objective Vitals Vital Signs Date Time Temp Pulse Resp B/P (MAP) Pulse Ox O2 Delivery O2 Flow Rate FiO2 10/10/17 04:25 96.9 111 18 167/96 (119) 98 10/10/17 00:20 98.8 102 17 134/79 (97) 96 10/09/17 21:50 114 137/74 (95) 10/09/17 20:20 98.6 112 17 162/84 (110) 94 10/09/17 19:44 Room Air 10/09/17 16:30 99.7 110 18 165/85 (111) 96 10/09/17 12:00 98.8 110 18 112/63 (79) 95 I/O 10/09/17 10/09/17 10/09/17 10/10/17 10/10/17 10/10/17 07:00 15:00 23:00 07:00 15:00 23:00 Intake Total 1231 ml 960 ml 360 ml 240 ml Output Total 600 ml Balance 631 ml 960 ml 360 ml 240 ml Intake Oral 610 ml 960 ml 360 ml 240 ml IV Total 621 ml Output Urine Total 600 ml # Voids 4 2 1 # Bowel Movements 1 0 0 Result Diagram: 10/10/17 0525 10/09/17 0545 Imaging Last Impressions Hand X-Ray 10/08/17 0000 Signed Impressions: Service Date/Time: Sunday, October 08, 2017 18:09 - CONCLUSION: Bone defect at the base of the index finger distal phalanx. Mark Bradford MD Chest X-Ray 10/08/17 0000 Signed Impressions: Service Date/Time: Sunday, October 08, 2017 18:13 - CONCLUSION: No acute cardiopulmonary disease identified. Mark Bradford MD Objective Remarks General: Elderly male in no acute distress. Heart: Tachycardic. Lungs: Clear to auscultation bilaterally. No wheezes, rales, or rhonchi. Breathing is nonlabored. Abdomen: Soft, nontender, nondistended. Extremities: No lower extremity edema. Left hand heavily bandaged. Psych: Alert and oriented. Procedures 10/08/17 revision amputation left index finger, incision and drainage with repair of laceration left ring finger Urinary Catheter: No Vascular Central Line Catheter: No A/P Assessment and Plan 1. Left index and fourth finger laceration, partial amputation: Status post surgical intervention. Appreciate hand surgery recommendations. Cleared for discharge home by hand surgery. 2. Atrial fibrillation with RVR: Patient does have a history of atrial fibrillation and follows with cardiology, Dr. Granados. He takes metoprolol and digoxin. He is on Eliquis for anticoagulation. He was given IV diltiazem 1 in the ER with improvement of his rate. Despite metoprolol and digoxin, the patient 's heart rate has remained in the 105-110 range. He is asymptomatic. He would like to be discharged home. Consult cardiology. 3. Hypertension: Blood pressure has been elevated with pain. Continue clonidine , metoprolol, Dyazide, lisinopril, finasteride. 4. Dementia: Continue donepezil. 5. Anemia secondary to acute blood loss: Hemoglobin has stabilized. No active bleeding. Eliquis on hold. 6. BPH: Continue finasteride. Discharge Planning The patient would like to be discharged home today, however there is concern about his heart rate being elevated as well as pain control. His called some pharmacies this morning and they were closed and not able to fill the pain prescription. Plan for discharge home if cleared by cardiology and if we are able to get his prescription filled. Sherwin Oneill MD Oct 10, 2017 08:18
[2017-10-10] MEDS ORDERED: METOPROLOL TARTRATE 50 MG TAB PO ONE (08:30)
[2017-10-10] MEDS ORDERED: METOPROLOL SUCCINATE 50 MG EXTENDED RELEASE TAB PO SCH ×2 (09:00→21:00)
[2017-10-10] MEDS: DOCUSATE SODIUM 50 MG/SENNA 8.6 MG TAB PO SCH (09:50)
[2017-10-10] MEDS: DIGOXIN 0.125 MG TAB PO SCH (09:50)
[2017-10-10] MEDS: LISINOPRIL 20 MG TAB PO SCH (09:50)
[2017-10-10] MEDS: FINASTERIDE 5 MG TAB PO SCH (09:50)
[2017-10-10] MEDS: TRIAMTERENE/HCTZ 37.5 MG/25 MG CAP PO SCH (09:50)
[2017-10-10] MEDS: SODIUM CHLORIDE 0.9% FLUSH 10 ML FLUSH IV FLUSH SCH (09:57)
[2017-10-10 12:00] VITALS: BP 139/83; PULSE 91; RESP 18; TEMP 98.4; O2SAT 96
[2017-10-10] MEDS ORDERED: APIXABAN 5 MG TABLET PO SCH (13:30)
--- NOTE | 2017-10-10 13:45 | MB ---
cc: CHELE MATTHEW DATE OF CONSULTATION: 10/10/2017 REASON FOR CONSULTATION: Atrial fibrillation. HISTORY OF PRESENT ILLNESS The patient is an 87-year-old white male with a history of hypertension, paroxysmal atrial flutter, resolved nonischemic cardiomyopathy, who was brought to the hospital after a left hand injury from a table saw. He is status post partial left finger amputation yesterday. The patient denies any recent palpitations, dizziness, syncope, near-syncope, chest pain, shortness of breath, pedal edema, paroxysmal nocturnal dyspnea. PAST MEDICAL HISTORY 1. Hypertension. 2. Nonischemic cardiomyopathy with ejection fraction of 35-40% by echo 02/16/2016, with ejection fraction up to 50-55% by echo 07/28/2016. 3. Paroxysmal atrial flutter diagnosed February 2016 CARDIAC MEDICATIONS AT HOME: 1. Lisinopril 20 mg b.i.d. 2. Maxzide one daily. 3. Metoprolol tartrate 100 mg q.h.s. 4. Clonidine 0.1 mg q.h.s. 5. Eliquis 5 mg b.i.d. ALLERGIES Amlodipine. FAMILY HISTORY Noncontributory. SOCIAL HISTORY The patient denies alcohol or tobacco abuse. REVIEW OF SYSTEMS: As in the history of present illness otherwise negative or noncontributory. He also denies headache, abdominal pain, melena, dyspepsia, bright red blood per rectum, fevers. PHYSICAL EXAMINATION: On physical examination his blood pressure 176/95 with a pulse of 110, respirations 20. In general he is a well-developed, well-nourished white male in no acute distress. HEENT examination: Jugular venous pressure is normal. Carotid pulses are 2+ bilaterally and without bruits. Chest: Examination of the chest reveals clear lung callahan. Cardiac: On cardiac examination he has a mildly tachycardiac regular rhythm without S3-S4 or murmur. Abdomen: On abdominal examination he has a soft, nontender abdomen. Bowel sounds are present. There is no definite hepatosplenomegaly. Extremities: Examination of extremities reveals no clubbing, cyanosis or edema. LABORATORY DATA: Laboratory data includes WBC 10.9, hemoglobin 9.8, platelets 114, potassium 4.1, BUN 15, creatinine 1.33, INR 1.1. X-RAYS: Chest x-ray shows no acute disease. EKG shows possible atrial tachycardia with 2:1 AV conduction, nonspecific intraventricular conduction delay. IMPRESSION Recurrent atrial tachycardia / flutter, in this 87-year-old white male with a history of paroxysmal atrial flutter diagnosed last year, history of hypertension, resolved nonischemic cardiomyopathy. At this time he remains in what appears to be an atrial tachycardia, with slightly elevated heart rate. He is completely asymptomatic from a cardiovascular standpoint. His thromboembolic risk is a moderately elevated with his advanced age and history of hypertension. There is no definite evidence of congestive heart failure. RECOMMENDATIONS 1. Increase his metoprolol to 100 mg b.i.d. 2. He can be discharged home today from a cardiac standpoint; as his thromboembolic risk is elevated, would resume his Eliquis if okay from a surgical standpoint. MD NORA Espino/DEMETRIA /1:07 PM /1:22 PM DIVINA
[2017-10-10] MEDS ORDERED: METO1TAB9 PO (13:58)
--- NOTE | 2017-10-11 17:24 | EKG ---
Date Performed: 10/10/2017 Time Performed: 12:04:40 PTAGE: 87 years EKG: ATRIAL FIBRILLATION INTRAVENTRICULAR CONDUCTION DELAY ABNORMAL ECG Compared to PREVIOUS TRACING , the patient is no longer in a rapid ventricular rate. PREVIOUS TRACING : 10/08/2017 17.38 DOCTOR: Myrna Levy Interpretating Date/Time 10/11/2017 17:22:40
== END 2017-10-10 14:37 | disposition home or self-care (01) | DRG 906 ==
LOC: NEPD 16:32 → NEDA 18:50 → N06A 10-09 00:05
PROVIDERS: ADMIT Family Medicine; ATTEND Family Medicine
PROC: 0PDV0ZZ Extraction of Left Finger Phalanx, Open Approach (ICD-10-PCS; 2017-10-08)
PROC: 0X6P0Z2 Detachment at Left Index Finger, Mid, Open Approach (ICD-10-PCS; principal; 2017-10-08 20:02)
DX: S68.121A Partial traumatic metacarpophalangeal amputation of left index finger, initial encounter (principal); I42.9 Cardiomyopathy, unspecified; I48.92 Unspecified atrial flutter; F03.90 Unspecified dementia, unspecified severity, without behavioral disturbance, psychotic disturbance, mood disturbance, and anxiety; I47.1 Supraventricular tachycardia; D62 Acute posthemorrhagic anemia; S62.635B Displaced fracture of distal phalanx of left ring finger, initial encounter for open fracture; I10 Essential (primary) hypertension; N40.0 Benign prostatic hyperplasia without lower urinary tract symptoms; I48.91 Unspecified atrial fibrillation; W31.2XXA Contact with powered woodworking and forming machines, initial encounter; Z79.01 Long term (current) use of anticoagulants
CPT/HCPCS: 71010; 73130; 80053; 83036; 83735; 84100; 84439; 84443; 85014; 85018; 85025; 85610; 85730; 88302; 88305; 88311; 90471; 90714; 93005; 94150; 96365; J0690; J2270; J7030